=== PATIENT | male | born 1960 | race African-American/Black ===

== ENCOUNTER 2018-02-02 12:39 | Emergency (ER) | payer MEDICAID ==
[~2018-02-02] VITALS: Ht 185.4 cm; Wt 81.4 kg
[2018-02-02 12:44] VITALS: BP 123/78
== END 2018-02-02 13:01 | disposition home or self-care (01) ==
LOC: ED 12:55
DX: K08.89 Other specified disorders of teeth and supporting structures (principal)
CPT/HCPCS: 99283